=== PATIENT | male | born 1955 | race Caucasian/White ===

== ENCOUNTER 2018-08-26 12:50 | Emergency (ER) | payer OTHER ==
[~2018-08-26] VITALS: Ht 170.2 cm; Wt 75.0 kg
[~2018-08-26 12:50] MED LIST: ALBU2.5V3 NEB; CEPH-443 PO; PRED20TA PO
[2018-08-26 13:11] VITALS: Ht 170.2 cm; Wt 75.0 kg
[2018-08-26] MEDS ORDERED: IBUP-1542 PO (15:00)
[2018-08-26] MEDS ORDERED: NPH10OT RIGHT EAR (15:00)
--- NOTE | 2018-08-26 15:05 | ERD ---
ER Documentation Chief Complaint Chief Complaint right ear pain x 2 days states also having trouble hearing from rt ear HPI 62-year-old male presents with right ear pain for last 2 days. He feels that something may have fallen on or worsening in his car. Denies any bleeding or discharge. Denies any cough or congestion. ROS All systems reviewed and are negative except as per history of present illness. Medications Home Meds Active Scripts Neomycin/Polymyxin/Hydrocort* (Cortisporin* Otic) 10 Ml Susp, 4 DROP RIGHT EAR QID for 7 Days, EA Prov:TAMIE MUSTAFA MD 08/26/18 Ibuprofen* (Motrin*) 600 Mg Tab, 600 MG PO Q6, #20 TAB Prov:TAMIE MUSTAFA MD 08/26/18 Albuterol Sulfate* (Albuterol Sulfate* Neb) 0.083%-3 Ml Neb, 2.5 MG NEB Q4 PRN for SHORTNESS OF BREATH, #30 EA Prov:ASHLEY CELESTE PA-C 03/23/16 Prednisone* (Prednisone*) 20 Mg Tab, 40 MG PO DAILY for 4 Days, TAB Prov:ASHLEY CELESTE PA-C 03/23/16 Cephalexin* (Keflex*) 500 Mg Capsule, 500 MG PO QID for 7 Days, CAP Prov:JUVENTINO DAMON PA-C 10/14/14 Allergies Allergies: Coded Allergies: No Known Allergy (Unverified , 03/23/16) PMhx/Soc History of Surgery: No Anesthesia Reaction: No Hx Neurological Disorder: No Hx Respiratory Disorders: No Hx Cardiac Disorders: No Hx Psychiatric Problems: No Hx Miscellaneous Medical Probl: No Hx Alcohol Use: No Hx Substance Use: No Hx Tobacco Use: No FmHx Family History: No diabetes, No coronary disease, No other Physical Exam Vitals Vital Signs Date Temp Pulse Resp B/P (MAP) Pulse Ox O2 O2 Flow FiO2 Time Delivery Rate 08/26/18 97.8 70 18 139/82 97 13:11 (101) Physical Exam Const: No acute distress Head: Atraumatic Eyes: Normal Conjunctiva ENT: Normal External Ears, Nose and Mouth. Pain with passive range of motion of the right external ear. Mild irritation and swelling in the right external auditory canal. Right TM is retracted without redness, discharge identified perforation. No mastoid tenderness. Neck: Full range of motion. No meningismus. Resp: Clear to auscultation bilaterally Cardio: Regular rate and rhythm, no murmurs Abd: Soft, non tender, non distended. Normal bowel sounds Skin: No petechiae or rashes Back: No midline or flank tenderness Ext: No cyanosis, or edema Neur: Awake and alert Psych: Normal Mood and Affect Procedures/MDM Patient presents with right ear discomfort for last 2 days. Signs of otitis externa. Is no signs of mastoiditis, perforation. Will treat with Cortisporin, ibuprofen, recommend agents for primary care follow-up and return precautions for worsening pain, fevers, bleeding, new worsening symptoms. The patient was stable with no new complaints during the ER course. Clinically, there is no current evidence to suggest meningitis, sepsis, acute abdomen, pneumonia, stroke, acute coronary syndrome, pulmonary embolism, aortic dissection or any other emergent condition appearing to require further evaluation or hospitalization. Patient counseled regarding my diagnostic impression and care plan. Prior to discharge all questions answered. Pt agrees with treatment plan and understands strict return precautions. Pt is instructed to follow up with primary care provider within 24-48 hours. Precautionary instructions provided including instructions to return to the ER if not improving or for any worsening or changing symptoms or concerns. Disclaimer: Inadvertent spelling and grammatical errors are likely due to EHR/dictation software use and do not reflect on the overall quality of patient care. Also, please note that the electronic time recorded on this note does not necessarily reflect the actual time of the patient encounter. Departure Diagnosis: Primary Impression: Right ear pain Condition: Stable Patient Instructions: External Ear Infection (Adult) Referrals: DOCTOR,NOT ON STAFF (PCP) [facility] Usted se bullard hecho un examen mdico de control que le indica que no est en екатерина condicin que requiera tratamiento urgente en el Departamento de Emergencia. Un estudio ms profundo y el tratamiento de chapman condicin pueden esperar sin ningn riesgo hasta que usted sea atendida/o en el consultorio de chapman mdico o екатерина cl alysa. Es responsabilidad suya arreglar екатерина milena para el seguimiento del teresa. MANEJO DE CONDICIONES NO URGENTES EN EL FUTURO 1) Si usted tiene un mdico de atencin primaria: Usted debera llamar a chapman mdico de atencin primaria antes de venir al depar tamento de emergencia. Despus de las horas de consultorio, chapman doctor o chapman asociado/a est disponible por telfono. El mdico o enfermero de kim en el servicio telefnico puede asesorarle por everett medio para atender el problema, o teresa contrario se puede programar екатерина milena. 2) Si usted no tiene un mdico de atencin primaria: Llame al mdico o clnica de referencia que aparece abajo jonnathan las horas de consultorio para hacer екатерина milena para que le vean. CLINICAS: [place] [phone] [facility] [phone] [facility]. [facility] [phone] [facility]. [place] [id number] [phone] [facility] [place] [id number] [phone] [facility] [phone] [address] Additional Instructions: Likely external ear infection. Recheck for new worsening symptoms with primary care doctor. See ENT for persistent symptoms despite treatment. TAMIE MUSTAFA MD August 26, 2018 15:05
[2018-08-26 15:15] VITALS: BP 163/83; PULSE 78; RESP 16
== END 2018-08-26 15:15 | disposition home or self-care (01) ==
LOC: FTE 12:50
DX: H92.01 Otalgia, right ear (principal)
CPT/HCPCS: 99283